=== PATIENT | male | born 2000 | race African-American/Black ===

== ENCOUNTER 2021-02-09 09:00 | Emergency (ER) | payer SELFPAY ==
[~2021-02-09] VITALS: Ht 182.9 cm; Wt 142.9 kg
--- NOTE | 2021-02-09 09:00 | NUR ---
PT [facility] C/O RLQ ABDOMINAL PAIN STARTED THIS MORNING. PT IS AAOX4, NOT IN RESPIRATORY DISTRESS. HOOKED TO INSURANCE EXAMINING CLERK. KEPT RESTED AND COMFORTABLE. WILL CONTINUE TO MONITOR.
--- NOTE | 2021-02-09 09:10 | NUR ---
PT SEEN AND EXAMINED BY .
--- NOTE | 2021-02-09 09:15 | NUR ---
IV LINE ESTABLISHED BLOOD DRAWN AND SENT TO LAB.
--- NOTE | 2021-02-09 09:18 | NUR ---
VERBAL ORDERED TORADOL 15MG IVP.
--- NOTE | 2021-02-09 09:22 | NUR ---
URINAL GIVEN BUT UNABLE TO PROVIDE URINE SPECIMEN THIS TIME.
[2021-02-09 09:30] LABS: BASOPHILS # (AUTO) 0.1 K/uL (0.0-0.2); BASOPHILS % (AUTO) 0.6 % (0.0-2.0); EOSINOPHILS % (AUTO) 0.7 % (0.0-6.0); HEMATOCRIT 43 % (39-51); HEMOGLOBIN 14.3 g/dL (13.5-17.5); LYMPHOCYTES # (AUTO) 1.8 K/uL (0.8-4.8); LYMPHOCYTES % (AUTO) 16.5 % (20.0-44.0); MEAN CORPUSCULAR HGB CONC 33 g/dl (31.0-36.0); MEAN CORPUSCULAR VOLUME 82 fL (80-96); MONOCYTES # (AUTO) 0.5 K/uL (0.1-1.30); MONOCYTES % (AUTO) 5.1 % (2.0-12.0); NEUTROPHILS # (AUTO) 8.2 K/uL (1.8-8.9); NEUTROPHILS % (AUTO) 77.1 % (43.0-81.0); PLATELET COUNT (AUTO) 290 K/uL (150-450); RED BLOOD CELL COUNT(AUTO) 5.22 MIL/uL (4.5-6.0); WHITE BLOOD COUNT (AUTO) 10.6 K/uL (4.3-11.0)
[2021-02-09] MEDS ORDERED: IV NS 0.9% 1,000 ML BAG IV ONE (09:30)
[2021-02-09] MEDS ORDERED: KETOROLAC TROMETHAMINE 15 MG/ML VIAL ONE (09:35)
[2021-02-09 09:37] LABS: CALCIUM, SERUM 9.5 mg/dL (8.5-10.1); POTASSIUM 4.3 mmol/L (3.5-5.1)
[2021-02-09 09:43] LABS: BILIRUBIN,DIRECT 0.1 mg/dL (0.0-0.2); BILIRUBIN,TOTAL 0.3 mg/dL (0.2-1.0); TOTAL PROTEIN, SERUM 8.2 g/dL (6.4-8.2)
[2021-02-09] MEDS ORDERED: IOHEXOL-300 100 ML VIAL IV ONE (09:49)
[2021-02-09] MEDS ORDERED: IV NS 0.9% 250 ML IV ONE (09:50)
--- NOTE | 2021-02-09 10:01 | NUR ---
PT IS BACK FROM CT SCAN.
[2021-02-09] MEDS ORDERED: IBUP-1957 PO (11:47)
[2021-02-09 11:49] LABS: BILIRUBIN,URINE NEGATIVE (NEGATIVE); COLOR,URINE YELLOW (YELLOW); LEUKOCYTE ESTERASE ,URINE NEGATIVE (NEGATIVE); NITRITE, URINE NEGATIVE (NEGATIVE); PROTEIN,URINE NEGATIVE (NEGATIVE); UGLUCOSE NEGATIVE (NEGATIVE); UROBILINOGEN,URINE 0.2 EU/dL (0.2)
[2021-02-09 12:00] VITALS: BP 125/77
--- NOTE | 2021-02-09 12:00 | NUR ---
IV removed. Catheter intact and site benign. Pressure and 4x4 applied to site. No bleeding noted. Patient discharged to home in stable condition. Written and verbal after care instructions given. Patient verbalizes understanding of instruction.
[2021-02-09 12:16] LABS: BACTERIA,URINE Few /HPF (None Seen); WBC,URINE NONE SEEN /HPF (0-3)
== END 2021-02-09 12:00 | disposition home or self-care (01) ==
LOC: ER 09:04
DX: N23 Unspecified renal colic (principal); R31.29 Other microscopic hematuria; R19.7 Diarrhea, unspecified; F41.9 Anxiety disorder, unspecified; F32.9 Major depressive disorder, single episode, unspecified
CPT/HCPCS: 36415; 74177; 80048; 80076; 81001; 83690; 85025; 87086; 96360; 99285; J1885; J7030; J7050; Q9967